=== PATIENT | female | born 1940 | race Caucasian/White ===

== ENCOUNTER → 2019-11-13 | Outpatient (CLI) | payer MEDICARE, OTHER ==
[~2019-11-13] MED LIST: ANTIDEPRESSANT; BACTRIM DS 8001 TAB PO; CEFTIN500 MG PO; CELEXA 20MG20 MG/TAB PO; CEPHALEXIN500 M1 PO; LISINOPRIL10 MG PO; NORCO 325 MG-51 TAB PO; NORVASC 10MG10 MG; NORVASC 5MG5 MG/TAB PO; TENORMIN 2525 MG/TAB PO; TYLENOL 500MG500 MG PO; ZESTRIL 10MG10 MG PO; ZESTRIL 20MG TA20 MG PO; ZOLOFT 25MG25 MG PO
== END ==
LOC: ZCOL.LAB 09:54
DX: R91.8 Other nonspecific abnormal finding of lung field (principal)

== ENCOUNTER 2020-02-17 03:03 | Inpatient (IN) | payer MEDICARE, OTHER ==
[~2020-02-17] VITALS: Ht 157.5 cm; Wt 49.4 kg
[2020-02-17 03:44] LABS: BASO % 0.3 % (0.0-2.0); EOS % 0.1 % (0-4.0); GRAN # 9.6 (1.4-6.5); GRAN % 65.5 % (42.2-75.2); HEMOGLOBIN 12.2 g/dl (12.5-16.0); LYMPH # 3.7 (1.2-3.4); LYMPH % 25.3 % (20.0-51.0); MEAN CELL VOLUME 91 fl (80.0-100.0); MEAN CORPUSCULAR HEMOGLOBIN 31 pg (27.0-31.0); MEAN CORPUSCULAR HGB CONC 34 g/dl (33.0-37.0); MEAN PLATELET VOLUME 11.2 fl (7.4-10.4); MONO # 1.2 (0.1-0.6); MONO % 8.2 % (1.7-9.3); PLATELET COUNT 212 K/mm3 (130-400); RED BLOOD COUNT 3.94 M/mm3 (4.10-5.30); REDCELL DISTRIBUTION WIDTH-CV 14.3 % (11.5-14.5)
[2020-02-17 03:47] LABS: HEMATOCRIT 35.9 % (37.0-47.0)
[2020-02-17 03:48] LABS: INR 1.4 (0.8-3.0); PROTHROMBIN TIME 15.2 SECONDS (9.7-12.8)
[2020-02-17 03:50] LABS: PARTIAL THROMBOPLASTIN TIME 31.4 SECONDS (26.0-37.0)
[2020-02-17 03:58] LABS: ALANINE AMINOTRANSFERASE 8 U/L (4-34); ALBUMIN 3.3 gm/dL (3.5-5.0); ALKALINE PHOSPHATASE 101 U/L (50-136); ANION GAP 5 mmol/L (7-16); AST,SGOT 16 U/L (15-37); BILIRUBIN,TOTAL 1.2 mg/dL (0.0-1.0); BLOOD UREA NITROGEN 19 mg/dL (7-17); CALCIUM 8.8 mg/dL (8.4-10.2); CARBON DIOXIDE 26 mmol/L (22-30); CHLORIDE 106 mmol/L (98-107); CREATININE, serum 0.43 (0.52-1.25); GLUCOSE 133 mg/dL (74-106); LIPASE 105 U/L (23-300); POTASSIUM 3.1 mmol/L (3.4-5.0); SODIUM 138 mmol/L (137-145); TOTAL PROTEIN 6.4 gm/dL (6.4-8.2)
[2020-02-17 04:09] LABS: TROPONIN-I < 0.012 ng/mL (0.000-0.035)
[2020-02-17 05:10] LABS: MUCOUS Present /lpf; PH 5 (5-8); SQUAMOUS EPITHELIAL 0-2 /hpf; URINE APPEARANCE Hazy; URINE BACTERIA Moderate /hpf; URINE BILIRUBIN Negative (NEGATIVE); URINE BLOOD 2+ (NEGATIVE); URINE COLOR Yellow; URINE GLUCOSE Negative (NEGATIVE); URINE KETONE Negative (NEGATIVE); URINE LEUKOCYTE ESTERASE 1+ (NEGATIVE); URINE NITRATE Positive (NEGATIVE); URINE PROTEIN(semi-quant) 1+ (NEGATIVE); URINE UROBILINOGEN >=4.0 mg/dL (NEGATIVE)
[2020-02-17 05:16] LABS: COLLECTION METHOD CATHETER
[2020-02-17] MEDS ORDERED: CELEXA 20MG20 MG/TAB PO (10:11)
[2020-02-17] MEDS ORDERED: FOLIC ACID 11 MG/TA1 PO (10:11)
[2020-02-17] MEDS ORDERED: ARYMO ER15 MG PO (10:11)
[2020-02-17] MEDS ORDERED: CYANOCOBAL1000 MCG/1 IM (10:12)
--- NOTE | 2020-02-17 10:55 | NUR ---
PATIENT ADMITED INTO ROOM 345 FROM ER. PATIENT IS MUCH MORE CONFUSED THAN REPORTED. UNABLE TO OBTAIN HEALTH HISTORY. PATIENT COULDN'T VERBALIZE THE PHARMACY SHE USES OR HER ALLERGIES. NO FAMILY AT BEDSIDE. PATIENT IS ONLY ORIENTED TO PERSON. NO C/O SOA OR CHEST PAIN AT THIS TIME. HEP GTT INFUSING INTO LEFT FORARM IV. HEAD TO TOE ASSESSMENT COMPLETE. HOME MEDS PUT IN HER PHARMACY BIN, INCLUDING HER NARCOTICS. ORIENTED TO ROOM. CALL LIGHT IN REACH. BED ALARM ON.
[2020-02-17 11:39] VITALS: BP 117/81; PULSE 77; TEMP 97.9
--- NOTE | 2020-02-17 14:45 | NUR ---
ECHO AT BEDSIDE.
[2020-02-17 15:53] VITALS: BP 115/83; PULSE 76; TEMP 97.5
--- NOTE | 2020-02-17 16:40 | NUR ---
PATIENT GETTING OUT OF BED, SETTING OFF ALARM. PATIENT WAS FAST. BY THE TIME NURSING ENTERED THE ROOM SHE HAD CLIMBED OVER HER BEDRAIL AND WAS AMBULATING. GAIT UNSTEADY. NOTED PATIENT TO BE INCONTINENT OF URINE. PATIENT CLEANED UP AND POSITIONED BACK INTO BED. BED ALARM ON. WILL MONITOR.
--- NOTE | 2020-02-17 19:30 | NUR ---
Pt. laying in bed at this time. Pt. is very confused. Pt. does get angry and a bit combative at times. Shift assessment complete. IV to lt. forearm patent with Heparin gtt running at this time. Pt. denies pain. Call light within reach, bed alarm on.
[2020-02-17 19:33] VITALS: BP 103/74; PULSE 71; TEMP 97.9
[2020-02-17 23:06] VITALS: BP 117/74; PULSE 84; TEMP 98.2
[2020-02-18 04:28] VITALS: BP 138/87; PULSE 87; TEMP 97.8
[2020-02-18 07:05] LABS: BASO % 0.2 % (0.0-2.0); GRAN # 9.6 (1.4-6.5); GRAN % 75.1 % (42.2-75.2); HEMATOCRIT 32.6 % (37.0-47.0); HEMOGLOBIN 11.1 g/dl (12.5-16.0); LYMPH # 2.2 (1.2-3.4); LYMPH % 17.3 % (20.0-51.0); MEAN CELL VOLUME 91 fl (80.0-100.0); MEAN CORPUSCULAR HEMOGLOBIN 31 pg (27.0-31.0); MEAN CORPUSCULAR HGB CONC 34 g/dl (33.0-37.0); MEAN PLATELET VOLUME 11.4 fl (7.4-10.4); MONO # 0.9 (0.1-0.6); MONO % 6.8 % (1.7-9.3); PLATELET COUNT 230 K/mm3 (130-400); RED BLOOD COUNT 3.58 M/mm3 (4.10-5.30); REDCELL DISTRIBUTION WIDTH-CV 14.1 % (11.5-14.5)
[2020-02-18 07:22] LABS: CALCIUM 8.5 mg/dL (8.4-10.2); CREATININE, serum 0.38 (0.52-1.25)
[2020-02-18 07:29] LABS: POTASSIUM 2.8 mmol/L (3.4-5.0)
[2020-02-18 07:54] VITALS: BP 134/59; PULSE 74; TEMP 98.6
--- NOTE | 2020-02-18 08:00 | NUR ---
PATIENT IS CONFUSED AND MOSTLY NON-COMPLIENT WITH NURSING. PATIENT REFUSING TO TAKE ORAL MEDS FOR NURSE. WAS ABLE TO GET PATIENT TO TRY AND TAKE ONE OF HER AM PILL AND SHE VOMITED SMALL AMOUNTS OF DARK GREEN EMESIS. PATIENT REFUSING TO TAKE IN ORAL. REFUSED AM BREAKFAST. PATIENT IS VERY THIN AND APPEARS TO HAVE POOR NUTRITION. REPORTS PATIENT EATS A TON AT HOME, HOWEVER, THE PATIENT'S WEIGHT DOES NOT REFLECT THIS. REPORTS SHE EATS A STACK OF PANCAKES NORMALLY AT HOME. PATIENT REPORTS SHE DOESN'T EAT MUCH. PATIENT DOES HAVE HX OF DEMENTIA. ORIENTED TO PERSON. NOTED LABBORED BREATHING WITH ACTIVITY. VSS. 94% on RA. HEAD TO TOE ASSESSMENT COMPLETE. PATIENT IS INCONTIENT OF BOWL & BLADDER. REPORTS FREQUENT ISSUES WITH UTI. PATIENT IS HIGH FALL RISK, GAIT UNSTEAD, AND REQUIRES 1-2 ASSIST WITH ACTIVITY. PT/OT/ST CONSULTED. PATIENT REFUSING TO WORK WITH THERAPIES. BED ALARM ON. CALL LIGHT IN REACH. PATIENT'S ROOM BY THE NURSES STATION.
--- NOTE | 2020-02-18 08:59 | NUR ---
Tool Maker Bench attended clinical rounds with the team. The patient's was present. PT/OT ordered for the patient.
--- NOTE | 2020-02-18 09:59 | NUR ---
Storage Worker met with the patient and the patient's , Evelio #[phone] to complete initial intake. The patient is confused and could not answer the questions. The patient lives in [facility] with Evelio. The patient has a walker and wheelchair. The patient takes bathtub baths and sponge baths. The patient receives assistance from Evelio and her daughter, Sarah #[phone] with ADLs. The patient's PCP is Dr. Aguilar and patient receives medications from [facility]. The patient's Oncologist is Dr. Cam. The patient does not have advance directives in the EMR. Evelio states they are completed and designate him. The paperwork is in a bank safe. He will try and get them and bring a copy. The plan for the patient is to is to return home. PETRA discussed the benefits of HHS. Evelio declined. PETRA contacted the patient's daughter to follow up with the discharge plan. She was in agreeance with the discharge plan. She too declined HHS. Sarah states that she and Evelio care for the patient. PETRA discussed the patient's cancer treatment. Sarah states they just found out two months ago and the patient has had one chemo and one radiation treatment. The patient was supposed to have chemo last week but the nurse at the treatment center were out of the office due to illness. PETRA collaborated the above information with the patient's nurse.
--- NOTE | 2020-02-18 10:00 | NUR ---
Initial visit; Patient and her thanked Caustic Loader for stopping and offering Spiritual Care.
[2020-02-18 11:32] VITALS: BP 150/84; PULSE 75; TEMP 98.1
--- NOTE | 2020-02-18 14:20 | NUR ---
PATIENT INCREASINGLY CONFUSED. PATIENT IS VERY RESTLESS AND PULLED OUT RIGHT WRIST IV SITE. PATIENT SETTING OFF CHAIR ALARM. ALSO NOTED PATIENT TO BE INCONTINENT. ASSISTED PATIENT TO GET CLEANED UP, NEW BRIEF & GOWN, AND STARTED NEW IV SITE IN RIGHT FORARM. APPLIED MITTS TO BUE. BED ALARM ON.
[2020-02-18 16:00] VITALS: BP 126/69; PULSE 85; TEMP 99.3
--- NOTE | 2020-02-18 21:00 | NUR ---
Pt. is trying to get out of bed frequently. Pt. is confused and will become agitated and combative when disturbed. Shift assessment complete. IV to lt. forearm patent, heparin gtt infusing per orders. IV to rt. forearm patent, IV fluids and potassium infusing per orders. Pt. is also very combative at this time. Pt. is yelling and trying to hit the staff. Dr. Mayes notified, new orders received.
[2020-02-19] VITALS: BP 143/96; PULSE 95; TEMP 97.4
--- NOTE | 2020-02-19 01:00 | NUR ---
Pt. woke during lab draws. Pt. is again very combative. IV to lt. forearm was bleeding, discontinued lt. forearm IV and started new site to rt. ac. Pt. very combative requiring 3 people to assist with iv sticks. Will give 1 time dose of haldol, ordered by Sugey.
--- NOTE | 2020-02-19 02:57 | NUR ---
Pt. resting quietly at this time, respirations are equal and unlabored. Pt. not disturbed at this time.
[2020-02-19 04:10] VITALS: BP 107/70; PULSE 119; TEMP 97.7
[2020-02-19 09:21] VITALS: BP 104/69; PULSE 103; TEMP 98.5
--- NOTE | 2020-02-19 10:00 | NUR ---
Patient alert, confused. See assessment. Able to feed self. Mitts in place r/t patient repeately pulls IVs out. No s/s pain.
[2020-02-19 10:09] LABS: CALCIUM 8.4 mg/dL (8.4-10.2); CREATININE, serum 0.44 (0.52-1.25); POTASSIUM 3.3 mmol/L (3.4-5.0)
[2020-02-19 10:23] LABS: BASO % 0.3 % (0.0-2.0); GRAN # 6.2 (1.4-6.5); GRAN % 65.6 % (42.2-75.2); HEMOGLOBIN 11.4 g/dl (12.5-16.0); LYMPH # 2.4 (1.2-3.4); LYMPH % 25.2 % (20.0-51.0); MEAN CELL VOLUME 91 fl (80.0-100.0); MEAN CORPUSCULAR HEMOGLOBIN 31 pg (27.0-31.0); MEAN CORPUSCULAR HGB CONC 34 g/dl (33.0-37.0); MEAN PLATELET VOLUME 11.4 fl (7.4-10.4); MONO # 0.8 (0.1-0.6); MONO % 8.5 % (1.7-9.3); PLATELET COUNT 198 K/mm3 (130-400); RED BLOOD COUNT 3.69 M/mm3 (4.10-5.30); REDCELL DISTRIBUTION WIDTH-CV 14.1 % (11.5-14.5)
[2020-02-19 10:53] LABS: HEMATOCRIT 33.6 % (37.0-47.0)
[2020-02-19 11:12] VITALS: BP 111/64; PULSE 99; TEMP 98.4
[2020-02-19] MEDS ORDERED: OMNICEF 300MG300 MG PO (12:03)
[2020-02-19] MEDS ORDERED: ELIQUIS 5MG PO ×3 (12:03→12:04)
[2020-02-19] MEDS ORDERED: MEGACE ORAL40 MG/ML PO (12:05)
--- NOTE | 2020-02-19 13:21 | NUR ---
Discharge instructions reviewed with patient and spouse, verbalized understanding. Discharged via wheelchair to auto/home with spouse at 1310.
--- NOTE | 2020-02-19 15:31 | NUR ---
The patient discharged home with family support today, 02/18. PETRA met with the patient and her , Evelio to discuss the benefits of home health services. Evelio declined [facility]. He states the patient's daughter and himself can handle her care. There are no additional needs at this time.
[2020-02-20] MEDS ORDERED: ELIQUIS 5MG PO (15:19)
== END 2020-02-19 13:10 | disposition home or self-care (01) | DRG 871 ==
LOC: COL.ER 03:03 → SURG 10:25
PROVIDERS: Emergency Medicine; Physician Assistant; Student in an Organized Health Care Education/Training Program; ADMIT Hospitalist
DX: A41.9 Sepsis, unspecified organism (principal); I26.99 Other pulmonary embolism without acute cor pulmonale; J18.9 Pneumonia, unspecified organism; C34.90 Malignant neoplasm of unspecified part of unspecified bronchus or lung; C79.51 Secondary malignant neoplasm of bone; N39.0 Urinary tract infection, site not specified; C78.7 Secondary malignant neoplasm of liver and intrahepatic bile duct; J43.9 Emphysema, unspecified; I25.10 Atherosclerotic heart disease of native coronary artery without angina pectoris; E87.6 Hypokalemia; K80.20 Calculus of gallbladder without cholecystitis without obstruction; N20.0 Calculus of kidney; K44.9 Diaphragmatic hernia without obstruction or gangrene; F17.210 Nicotine dependence, cigarettes, uncomplicated; D35.01 Benign neoplasm of right adrenal gland; F41.9 Anxiety disorder, unspecified; F03.90 Unspecified dementia, unspecified severity, without behavioral disturbance, psychotic disturbance, mood disturbance, and anxiety; Z86.73 Personal history of transient ischemic attack (TIA), and cerebral infarction without residual deficits; Z86.711 Personal history of pulmonary embolism; Z86.718 Personal history of other venous thrombosis and embolism; Z99.81 Dependence on supplemental oxygen
CPT/HCPCS: 99223-AI; 99232-AI; 99239; J0456; J0696; J1170; J1630; J1644; J2060; J2270; J2930; J3010; J3480; J7030; J7050; Q9967

== ENCOUNTER 2020-06-25 10:44 | Inpatient (IN) | payer MEDICARE, OTHER ==
[~2020-06-25] VITALS: Ht 157.5 cm; Wt 44.7 kg
[~2020-06-25 10:44] MED LIST changes: +ARYMO ER15 MG PO; +CYANOCOBAL1000 MCG/1 IM; +ELIQUIS 5MG PO; +FOLIC ACID 11 MG/TA1 PO; +MEGACE ORAL40 MG/ML PO; +OMNICEF 300MG300 MG PO
[2020-06-25 12:01] LABS: HEMOGLOBIN 10.2 g/dl (12.5-16.0); MEAN CELL VOLUME 92 fl (80.0-100.0); MEAN CORPUSCULAR HEMOGLOBIN 30 pg (27.0-31.0); MEAN CORPUSCULAR HGB CONC 33 g/dl (33.0-37.0); MEAN PLATELET VOLUME 12.4 fl (7.4-10.4); RED BLOOD COUNT 3.39 M/mm3 (4.10-5.30); REDCELL DISTRIBUTION WIDTH-CV 14.3 % (11.5-14.5)
[2020-06-25 12:05] LABS: ALANINE AMINOTRANSFERASE 7 U/L (4-34); ALKALINE PHOSPHATASE 82 U/L (50-136); ANION GAP 4 mmol/L (7-16); AST,SGOT 17 U/L (15-37); BILIRUBIN,TOTAL 0.6 mg/dL (0.0-1.0); BLOOD UREA NITROGEN 18 mg/dL (7-17); CALCIUM 8.7 mg/dL (8.4-10.2); CARBON DIOXIDE 29 mmol/L (22-30); CHLORIDE 106 mmol/L (98-107); CREATININE, serum 0.67 (0.52-1.25); GLUCOSE 98 mg/dL (74-106); POTASSIUM 3.8 mmol/L (3.4-5.0); SODIUM 140 mmol/L (137-145)
[2020-06-25 12:17] LABS: TROPONIN-I < 0.012 ng/mL (0.000-0.035)
[2020-06-25 12:23] LABS: HEMATOCRIT 31.3 % (37.0-47.0)
[2020-06-25 12:24] LABS: PLATELET COUNT 48 K/mm3 (130-400)
[2020-06-25 12:35] LABS: BAND 3 % (0-10); LYMPHOCYTE 25 % (20.0-51.0); NEUTROPHILS 58 % (42.0-75.2)
[2020-06-25 12:36] LABS: HYPOCHROMIA 1+; PLATELET ESTIMATE DECREASED (NORMAL)
[2020-06-25 12:38] LABS: OVALOCYTES 1+
[2020-06-25 13:16] LABS: COLLECTION METHOD CATHETER
[2020-06-25 13:30] LABS: AMORPHOUS CRYSTAL Present /uL; PH 5 (5-8); SQUAMOUS EPITHELIAL None Seen /hpf; URINE APPEARANCE Cloudy; URINE BACTERIA Occasional /hpf; URINE BILIRUBIN Negative (NEGATIVE); URINE BLOOD 3+ (NEGATIVE); URINE COLOR Amber; URINE GLUCOSE Negative (NEGATIVE); URINE KETONE Negative (NEGATIVE); URINE LEUKOCYTE ESTERASE 1+ (NEGATIVE); URINE NITRATE Negative (NEGATIVE); URINE PROTEIN(semi-quant) 2+ (NEGATIVE); URINE RBC >50 /hpf; URINE UROBILINOGEN >=4.0 mg/dL (NEGATIVE); URINE WBC >50 /hpf
--- NOTE | 2020-06-25 16:37 | NUR ---
Field Clerk was contacted by BENJA Choi from Dr. Aguilar's office regarding speaking to the family about hospice. Steph faxed clinical information to the ED nurse. PETRA staffed with ED nurse and they will be admitting the patient. PETRA collaborated the above information with the floor Field Clerk.
[2020-06-25] MEDS ORDERED: VITAMIN B125000 MCG PO (19:15)
[2020-06-25] MEDS ORDERED: NORCO 325 MG-101 TAB PO (19:16)
[2020-06-25] MEDS ORDERED: MS CONTIN 330 MG/TAB PO (19:16)
[2020-06-25] MEDS ORDERED: DECADRON 4MG TAB4 MG (19:16)
[2020-06-25] MEDS ORDERED: MEGACE ORAL40 MG/ML PO (19:17)
[2020-06-25] MEDS ORDERED: ATIVAN 0.50.5 MG/TAB PO (19:17)
[2020-06-25] MEDS ORDERED: CENA K20 MEQ/15 PO (19:18)
--- NOTE | 2020-06-25 20:15 | NUR ---
Received patient from ED. Patient is alert but disoriented and confused. She doesn't know where she is right now. She can't tell when is her birthday. She is on a high fall risk. Placed fall precaution and signages. Changed patient's gown and placed non skid yellow socks. Bed alarm was on. She has INT on left AC and left forearm.
[2020-06-25 20:16] VITALS: BP 107/60; PULSE 72; TEMP 97.4
--- NOTE | 2020-06-25 21:30 | NUR ---
Tried giving patient his night time pills but she refuses. Tried giving her water first but she was not drinking and was just playing the straw with his tongue. Updated Adrianne HOLLINGSWORTH via phone and she ordered an IV pain medicine. INT on left forearm flushes well. INT on left AC has ecchymosis on the site. Removed INT on left AC. Started patient on IV fluids and antibiotics.
[2020-06-25 22:08] LABS: INR 2.9 (0.8-3.0); PROTHROMBIN TIME 32.3 SECONDS (9.7-12.8)
--- NOTE | 2020-06-25 22:20 | NUR ---
Patient was confused and restless. She was removing her gown and tried to pull her IV as well. Valium PRN given. Secured IV on left forearm.
--- NOTE | 2020-06-25 22:34 | NUR ---
Vancomycin Initial Dosing Pharmacy Note Ordering provider: Dong Guajardo DO 79 yo F PMH: Stage IV non-small cell lung cancer with mets Indication/duration: PNA / 7 days Goal: 15-20 Hx: None identified BMI: 18.3 Wt: 45.5 kg SCr: 0.67 estCrCl ~ 49.7 ml/min t 1/2 ~ 15 h Tmax: 97.7 WBC: 3 LA WNL Micro ordered Chest CT reporting mixed interstitial and alveolar infiltrate and RLL PNA Pt loaded with vanco 1gm x1 (~22mg/kg). Will start a maintenance regimen of 750mg q18h. Pt may not follow population based kinetics 2/2 comorbidities and patient population. Will follow renal function, micro, and plan of care for need to adjust therapy. Thank you for this dosing consult!
[2020-06-26 03:48] VITALS: BP 97/61; PULSE 78; TEMP 97.9
--- NOTE | 2020-06-26 06:06 | NUR ---
Patient fell asleep after receiving Valium. She is incontinent. Briefs changed this morning. Maintained her bed alarm on.
[2020-06-26 06:25] LABS: MEAN CELL VOLUME 95 fl (80.0-100.0); MEAN CORPUSCULAR HGB CONC 32 g/dl (33.0-37.0); MEAN PLATELET VOLUME 12.9 fl (7.4-10.4); RED BLOOD COUNT 2.92 M/mm3 (4.10-5.30); REDCELL DISTRIBUTION WIDTH-CV 14.3 % (11.5-14.5)
[2020-06-26 06:39] LABS: CALCIUM 8.1 mg/dL (8.4-10.2); CREATININE, serum 0.55 (0.52-1.25); POTASSIUM 4.2 mmol/L (3.4-5.0)
[2020-06-26 06:44] LABS: HEMATOCRIT 27.6 % (37.0-47.0); HEMOGLOBIN 8.7 g/dl (12.5-16.0); MEAN CORPUSCULAR HEMOGLOBIN 30 pg (27.0-31.0); PLATELET COUNT 45 K/mm3 (130-400)
[2020-06-26 07:25] LABS: BAND 6 % (0-10); LYMPHOCYTE 36 % (20.0-51.0); METAMYELOCYTE 1 % (0-0); NEUTROPHILS 56 % (42.0-75.2); OVALOCYTES 1+
[2020-06-26 07:26] LABS: PLATELET ESTIMATE DECREASED (NORMAL); SCHISTOCYTES 1+
[2020-06-26 08:38] VITALS: BP 117/69; PULSE 89; TEMP 98
--- NOTE | 2020-06-26 09:33 | NUR ---
PATIENT WAKES WHEN YOU APPROACH BEDSIDE, DOES NOT SPEAK MUCH BUT STATES "NO" WHEN SHE FOES NOT WANT SOMETHING. CAN NRECALL HER OWN NAME BUT CANNOT RECALL NAME. DRIFTS IN AND OUT OF PARTICIPATION. NO PBJECTIVE SIGNS OF PAIN; PATIENT REPOSITIONED FOR COMFORT.
--- NOTE | 2020-06-26 10:13 | NUR ---
Initial visit; It is unclear as to whether Wanda was aware of Line Erector Apprentice offering prayer for her. Line Erector Apprentice will keep Wanda in her prayers.
--- NOTE | 2020-06-26 10:34 | NUR ---
I met with Evelio Mireya at bedside with his . She does not respond to my questions and so I spoke directly with her . he reports that he and his daughter Sarah Alicia have been caring for Wanda and take turns providing care so the other person can "have time off" as caring for her is very difficult and wearing at times. He reports that when she is talking she is often speaking to her parents who are . He does recognize that her life is getting closer to ending. He asked about what medicare covers on hospice. I did advise him that they will pay for medications for comfort, equipment needed for comfort and visits from the hospice nurse, social service agency director and aide. We did talk about [facility] as an option of having her in a care facility where immediate family could visit(meeting screening protocal) and the focus of her care owuld be on her comfort. He would like for me to forward her information to them and reports that he and his daughter would like to tour the facility but may not be able to do this until Monday--as he does not know his daughter's schedule. I contacted Angy at [facility] and made a referral and faxed information on pt to them. Angy stated she would be glad to talk with Evelio by phone and answer his questions. Dr Easton did round on pt also and is aware that they are hoping to tour [facility] but probably not until Monday.
--- NOTE | 2020-06-26 11:11 | NUR ---
Was advised by Zita nurse that daughter will be allowed to visit along with Wanda's . I called her daughter Sarah, and advised her of this. She seemed quite pleased. They will also be touring [facility].
[2020-06-26 12:47] VITALS: BP 124/73; PULSE 84; TEMP 97.9
--- NOTE | 2020-06-26 15:05 | NUR ---
Toe Puncher attended clinical rounds with the team. Patient's is at bedside and reports he will be speaking with the [facility] today and had an appointment with them on Monday. PETRA collaborated with Prudence, Palliative RN who advised she spoke with Angy at [facility] and faxed referral. Prudence advised that patient would very likely qualify for care at the [facility]. Later in the afternoon, PETRA and CHARLEEN Foss met with patient's daughter, Sarah who was approved to visit patient. Sarah advised that she and patient's , Evelio share caregiving responsibilities for patient. The arrangement they have is that patient stays with Sarah five days, then patient will stay with Evelio for about four days. Sarah and Evelio provide all care for patient and Sarah denies any in home services. Sarah states hospice may be a good idea, but she doesn't feel at this time patient is ready. Sarah stated that patient is doing about 60% better than she was at time of admission and that she's definately seen patient worse. Sarah feels that some of patient's recent struggles are due to chemo brain. Sarah states she does not feel patient is ready to give up. Sarah would like for patient to continue with supportive care over the weekend and feels like she could likely take patient home. PETRA will continue to follow for family's decision on goals of care and discharge disposition.
--- NOTE | 2020-06-26 15:58 | NUR ---
Patient's daughter is at bedside and feels her mother has imiproved by 60% over what she was like before admission. She is very hopeful that her mother will continue to improve and can go home to continue fighting her cancer. We will wait to see what Monday looks like for patient and for family touring [facility].
[2020-06-26 16:00] VITALS: BP 113/58; PULSE 84; TEMP 98.3
--- NOTE | 2020-06-26 16:11 | NUR ---
Yardage Control Operator Forming followed up with patient's , Evelio by phone as patient does not have DPOA-HC in the EMR or on her chart. Evelio brought in patient's Living Will earlier today but it does not include DPOA-HC. Evelio was very frustrated by this call and advised he has brought it in several times before. Evelio states he will try to have [employer] fax it in, but they may not be open. Evelio again verbalized frustration with the hospital and ended the call. Evelio is patient's legal next of kin. PETRA provided this update to Margarita VILLASEÑOR and Director Of Graduate Admissions.
--- NOTE | 2020-06-26 16:45 | NUR ---
Supervisor Press Room contacted both the [facility] and patient's primary care office. Both do not have DPOA-HC.
--- NOTE | 2020-06-26 19:13 | NUR ---
patient [lesant, offered more speaking this afternoon when daughter uis present. she has no apparent pain needs at this time,
[2020-06-26 20:29] VITALS: BP 137/86; PULSE 84; TEMP 97.6
[2020-06-27 00:04] VITALS: BP 121/76; PULSE 73; TEMP 97.5
--- NOTE | 2020-06-27 02:47 | NUR ---
PT ASSESSMENT COMPLETE, NOT ORIENTATED. CONFUSED AND YELLING OUT THAT SHE WANTS OUT OF HERE THIS EVEING. CRYING UNCONTROLLABLE ASKING TO GET HER "BABY". PRN VALIUM GIVEN. REFUSED PM ORAL MEDS, STATES SHE DOESNT NEED THEM. TAKING OFF 02. BED ALARM ON. MONITORING.
[2020-06-27 04:13] VITALS: BP 136/85; PULSE 77; TEMP 97.7
--- NOTE | 2020-06-27 06:08 | NUR ---
RESTED [facility]HOU[facility] NIGHT WITHOUT INCIDENT. NEEDS MET
[2020-06-27 06:58] LABS: MEAN CELL VOLUME 92 fl (80.0-100.0); MEAN CORPUSCULAR HGB CONC 33 g/dl (33.0-37.0); MEAN PLATELET VOLUME 11.3 fl (7.4-10.4); PLATELET COUNT 67 K/mm3 (130-400); RED BLOOD COUNT 2.65 M/mm3 (4.10-5.30); REDCELL DISTRIBUTION WIDTH-CV 14.6 % (11.5-14.5)
[2020-06-27 07:05] LABS: CREATININE, serum 0.47 (0.52-1.25); POTASSIUM 3.4 mmol/L (3.4-5.0)
[2020-06-27 07:11] LABS: HEMATOCRIT 24.4 % (37.0-47.0); MEAN CORPUSCULAR HEMOGLOBIN 30 pg (27.0-31.0)
--- NOTE | 2020-06-27 08:00 | NUR ---
Shift assessment complete. Pt resting in bed. Tolerated half a cup of apple juice and several sips of ice water well. Oriented x4 but drowsy. Heart RRR. Lungs CTA. Moaning and reporting pain, scheduled contin given. Denies other needs. Continuing to monitor.
[2020-06-27 08:02] LABS: HYPOCHROMIA 2+; LYMPHOCYTE 20 % (20.0-51.0); NEUTROPHILS 78 % (42.0-75.2); PLATELET ESTIMATE DECREASED (NORMAL)
[2020-06-27 08:12] VITALS: BP 138/73; PULSE 77; TEMP 97.6
[2020-06-27 11:49] VITALS: BP 127/73; PULSE 74; TEMP 97.5
[2020-06-27 15:45] VITALS: BP 133/79; PULSE 77; TEMP 97.4
--- NOTE | 2020-06-27 19:30 | NUR ---
Sleeping soundly, respirations even and unlabored, skin warm and dry, telemetry in monik, VS stable, PPN @83ml/hr, tolerating abt w/o issue, tolerates clear liquid diet with poor appetite, purewick in use for incontinence
[2020-06-27 20:26] VITALS: BP 119/69; PULSE 61; TEMP 98.4
[2020-06-28 00:01] VITALS: BP 128/67; PULSE 67; TEMP 98.9
[2020-06-28 03:26] VITALS: BP 130/79; PULSE 67; TEMP 98.1
[2020-06-28 04:26] LABS: GRAN % 69.4 % (42.2-75.2); LYMPH # 0.6 (1.2-3.4); LYMPH % 21.1 % (20.0-51.0); MEAN CELL VOLUME 89 fl (80.0-100.0); MEAN CORPUSCULAR HGB CONC 34 g/dl (33.0-37.0); MEAN PLATELET VOLUME 11.1 fl (7.4-10.4); MONO # 0.2 (0.1-0.6); MONO % 8.1 % (1.7-9.3); PLATELET COUNT 84 K/mm3 (130-400); RED BLOOD COUNT 3.01 M/mm3 (4.10-5.30); REDCELL DISTRIBUTION WIDTH-CV 14.4 % (11.5-14.5)
[2020-06-28 04:27] LABS: HEMATOCRIT 26.9 % (37.0-47.0); HEMOGLOBIN 9.1 g/dl (12.5-16.0); MEAN CORPUSCULAR HEMOGLOBIN 30 pg (27.0-31.0)
[2020-06-28 04:34] LABS: CALCIUM 8.6 mg/dL (8.4-10.2); CREATININE, serum 0.54 (0.52-1.25); MAGNESIUM 1.8 mg/dL (1.6-2.3); PHOSPHOROUS 1.9 mg/dL (2.5-4.5); POTASSIUM 4.1 mmol/L (3.4-5.0)
--- NOTE | 2020-06-28 05:38 | NUR ---
Awake, confused, clean and dry, incontinence care with purewick in place, repositioned with pillows to offload pressure, telemetry in use SR 80s, VS stable, offered fluids frequently, PPN tolerated, will continue to monitor.
--- NOTE | 2020-06-28 06:35 | NUR ---
appears to be sleeping, arouses when assess left IV site, bedside shift report received from CHARLEEN Foreman
[2020-06-28 07:40] VITALS: BP 156/105; PULSE 78; TEMP 97.3
--- NOTE | 2020-06-28 08:10 | NUR ---
Vancomycin Follow-up Pharmacy Note Current regimen: Vancomycin 750 mg IV q18h Vancomycin trough: 7.66 Adjustments: Will increase Vancomycin to 1 gm IV q12h. Pharmacy will continue to monitor and check a Vancomycin trough on 06/30/20.
--- NOTE | 2020-06-28 08:15 | NUR ---
resting in bed having dry heavesRADAMES states she was in the room just a few minutes ago and she had small amount emesis dark in color, am meds given, had small amount emesis after this but no meds seen, refused any liquids at this time
[2020-06-28] MEDS ORDERED: AUGMENTIN 400100 ML PO (09:16)
[2020-06-28] MEDS ORDERED: PREDNISONE20 MG PO (09:18)
--- NOTE | 2020-06-28 09:20 | NUR ---
Dr Easton and care team in to see patient, family is insistent they take her home today, telemetry discontinued and procalamine stopped, has been incontinent of urine and care provided and dressed to plan for discharge, at bedside and will plan to take her home for care
[2020-06-28] MEDS ORDERED: PROTONIX 40MG T40 MG PO ×2 (09:42)
[2020-06-28] MEDS ORDERED: PEPCID40 MG PO (09:44)
--- NOTE | 2020-06-28 10:20 | NUR ---
medicated wtih MS Contin 15mg as a second dose as at home, at bedside and in agreement with this, discharge instructions given to and verbalizes understanding
--- NOTE | 2020-06-28 10:27 | NUR ---
discharged per WC
--- NOTE | 2020-06-28 13:14 | NUR ---
PETRA update. Patient decided that she wanted to go home. PETRA met with patient and about care and providing hospice at home or home health. reports rosanne MARYAM is a nurse and she will be providing care. reports that they have ameeting scheduled with hospice house tomorrow 06/29 for hospice to assess at 1 p.m. but would like to go home now. Patient reports that she wants to and that she wants to be home to do so but declines any other supports. Educated on supports for patient and family. NF.
== END 2020-06-28 10:27 | disposition home or self-care (01) | DRG 193 ==
LOC: COL.ER 10:44 → MEDICAL 17:47
PROVIDERS: Family Medicine; Nurse Practitioner Family; Nurse Practitioner Primary Care; Physician Assistant
DX: J18.9 Pneumonia, unspecified organism (principal); E43 Unspecified severe protein-calorie malnutrition; J44.0 Chronic obstructive pulmonary disease with (acute) lower respiratory infection; J44.1 Chronic obstructive pulmonary disease with (acute) exacerbation; C34.90 Malignant neoplasm of unspecified part of unspecified bronchus or lung; C78.7 Secondary malignant neoplasm of liver and intrahepatic bile duct; C79.51 Secondary malignant neoplasm of bone; Z68.1 Body mass index [BMI] 19.9 or less, adult; G93.40 Encephalopathy, unspecified; N39.0 Urinary tract infection, site not specified; J98.19 Other pulmonary collapse; D61.818 Other pancytopenia; Z66 Do not resuscitate; I10 Essential (primary) hypertension; R62.7 Adult failure to thrive; F03.90 Unspecified dementia, unspecified severity, without behavioral disturbance, psychotic disturbance, mood disturbance, and anxiety; F32.9 Major depressive disorder, single episode, unspecified; F41.9 Anxiety disorder, unspecified; G89.29 Other chronic pain; E86.0 Dehydration; D53.9 Nutritional anemia, unspecified; D69.6 Thrombocytopenia, unspecified; G47.00 Insomnia, unspecified; E87.6 Hypokalemia; K44.9 Diaphragmatic hernia without obstruction or gangrene; Z87.891 Personal history of nicotine dependence; Z86.711 Personal history of pulmonary embolism; Z94.7 Corneal transplant status; Z79.01 Long term (current) use of anticoagulants; Z88.6 Allergy status to analgesic agent; Z88.8 Allergy status to other drugs, medicaments and biological substances
CPT/HCPCS: 99232-AI; 99233-AI; 99239; J0456; J0692; J1956; J2270; J2920; J3360; J3370; J3480; J7030; J7050; Q9967